=== PATIENT | female | born 2005 | race Caucasian/White ===

== ENCOUNTER 2024-06-22 09:00 | Outpatient (RCR) | payer BC, SELFPAY ==
--- NOTE | 2023-11-03 13:09 | HP.SP.EVAL ---
Visit History Visit Info Date of Eval: 11/03/23 Visit: 1 Emergency Veterinarian: CLIFFORD History Attending Doctor: MARQUEZ GUNN Referring Doctor: MARQUEZ GUNN Reason for Referral: TONGUE THRUST RX HERE Medical Diagnosis: Orofacial yology disorder. Previous speech therapy: Yes Results: Help me grow was PT/OT/ST until age 2. Other Relevant Medical History/Diagnoses/Surgery: IEP from 2nd grade on. 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 She was born 2 weeks early with one week spent in the NICU due to apnea. Medications related to this diagnosis: Blood builder, vitamin d, multivitamin, acidophilus Diagnosis Diagnosis: Orofacial myology disorder Pain Is pain an issue with your current prescribed condition?: No Personal Preferred language: Mongolian Subjective Oralfacial Myology Subjective Counter Intelligence Agent: Dr. Berman Objective Oralfacial Myology Oral Exam Snoring: No Noxious Habits Previous Habits: Pacifier Length of time: No thumb sucking. 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 She had braces and they were removed 07-09-23. She currently is using invisalign all the time when not eating. The plan is to reduce use to nighttime only if teeth are not moving. Lips Lips: Competent Posture: Open Retraction: WNL Rounding: WNL Maintain suction: Brief Tongue Suction: Brief Frenulum Frenulum: Clipped (add date below) Date clipped: end grade. Swallow Swallow: Combination Eating Eating: Messy Mastication Mastication: Unilateral Bolus Bolus Collection: Scattered Drinking Drinking Tongue: Greets cup Additional Addtional Information: Mother expressed concern at very limited diet with no fruit or vegetables. She will eat starches and condiments per mother. She reported she has food anxiety and doesn't like touching or the smell of some things. They will make her gag. She reports gagging on non preferred foods but not on preferred foods. Mother reports trying to force her to eat some fruits and veggies but often they will not be eaten. She stated that strawberries are difficult to chew and needs cut small. Mother reported she has always needed foods cut small. She reported that she doesn't like the look of some foods. She was provided with a five day food diary to complete and a page to list variety of foods in food groups. Reference: Neuro-QoL instrument Radiation Oncology Patient Plan Plan Plan: Speech therapy is recommended weekly to complete a habit forming program with oral motor exercises to correct her orofacial myology disorder. Recommendations Treatment Warranted: Yes Treatment Warranted: Other: Comment: Orofacial myology disorder. Progress Prognosis: Good Frequency Frequency: 1x/Week Duration: 3 Months Visits in this POC: 12 Patient/Family Goal Patient/Family Goal: Zenaida stated she would like to fix her tongue Goals that are Established Determination:: Goals will be added/modified as deemed necessary and appropriate. Therapy will be discontinued when results of re-evaluation indicate therapy is no longer needed or lack of progress has been documented. Goal #1-5 Goal #1: Zenaida will complete a home program consisting of weekly charts to be returned to therapist with 80% completion. Goal #2: Zenaida will report an oral resting posture of 1 on a scale of 1 being all the time and 10 being never on 3 consecutive sessions. Goal #3: Zenaida will report a correct swallowing pattern for all foods and liquids with a comfort level of 1 on a scale of 1 being all the time and 10 being never on 3 consecutive sessions. Goal #4: Zenaida will participate in oral exercises in order to obtain a correct resting posture as well as correct swallow pattern with the ability to complete all exercises independently. Education Patient has Indicated that the Following Identified Educational Needs: None The Patient has indicated that they have no educational or learning abilities that may effect their care.: Yes Patient Instruction Patient Education: Diagnosis, Treatment Plan and Goals Person Taught: Patient and Family Teaching Method: Discussion Response to teaching: Verbalize understanding
--- NOTE | 2024-07-05 15:46 | HP.SP.DC_ITS ---
ST Discharge Summary Discharged: Discharge: Zenaida Alfredo is discharged from [facility] speech therapy as of July 05, 2024. She was evaluated for orofacial myology disorder/oral dysphagia on 11/03/23. She completed a total of 12 sessions during her therapy. Sessions initially were weekly then [facility] and had a re-evaluation on June 22, 2024. Her goals focused on a correct swallow pattern at rest and during oral intake. She met all her goals, and she is in agreement with discharge. Please see daily notes and evaluation for complete details. Thank you for allowing me to participate in the care of your patient.
== END 2024-06-22 19:00 | disposition home or self-care (01) ==
LOC: SP 09:00
DX: K14.8 Other diseases of tongue (principal)
CPT/HCPCS: 92507; 92610